=== PATIENT | female | born 1970 | race Two or more races ===

== ENCOUNTER 2022-01-05 00:01 | Emergency (ER) | payer MEDICAID, OTHER ==
[~2022-01-05] VITALS: Ht 160 cm; Wt 108.9 kg
[2022-01-05] MEDS ORDERED: SULF400T11 PO (01:12)
[2022-01-05 01:32] VITALS: BP 180/92
== END 2022-01-05 01:42 | disposition home or self-care (01) ==
LOC: ER 00:01
DX: N39.0 Urinary tract infection, site not specified (principal); E78.5 Hyperlipidemia, unspecified; I10 Essential (primary) hypertension
CPT/HCPCS: 81002